=== PATIENT | male | born 1945 | race Caucasian/White ===

== ENCOUNTER 2020-10-16 15:19 | Inpatient (IN) ==
[2020-10-16] MEDS ORDERED: Isovue-370 500 ML BOTTLE IVP ONE (16:10)
[2020-10-16] MEDS ORDERED: Acetaminophen 325 MG TABLET PO ONE (16:11)
[2020-10-16] MEDS: Ringers Solution, Lactated 1,000 ML IVC SCH (16:15)
[2020-10-16 16:23] LABS: Basophils % 0.2 %; Eosinophils # 0.4 K/mcL (0.0-0.6); Eosinophils % 3.2 %; Hematocrit 25.9 % (37.5-50.1); Hemoglobin 7.6 g/dL (12.9-16.9); Immature Granulocytes % 0.7 % (0-4); Lymphocytes # 0.8 K/mcL (0.6-4.6); Lymphocytes % 6.1 %; Mean Corpuscular HGB Conc 29.3 g/dL (31.6-35.5); Mean Corpuscular Hemoglobin 23.6 pg (28.0-33.3); Mean Platelet Volume 8.9 fL (9.4-12.4); Monocytes # 0.8 K/mcL (0.0-1.3); Monocytes % 6.7 %; Neutrophils # 10.5 K/mcL (1.6-8.9); Platelet Count 256 K/mcL (140-400); Red Blood Count 3.22 M/mcL (4.19-5.50); Red Cell Distribution Width 16.5 % (11.5-14.5); Segmented Neutrophils % 83.1 %; White Blood Count 12.6 K/mcL (4.3-11.1)
[2020-10-16 16:26] LABS: Mean Corpuscular Volume 80.4 fL (83.0-100.0)
[2020-10-16 16:40] LABS: BUN/Creatinine Ratio 18 (6-26); Blood Urea Nitrogen 14 mg/dL (8-23); Calcium 8.9 mg/dL (8.6-10.3); Carbon Dioxide 25 mEq/L (23-29); Chloride 95 mEq/L (98-107); Glucose 163 mg/dL (70-105); Osmolality,Calculated 276 (280-300); Potassium 3.8 mEq/L (3.5-5.1); Sodium 131 mEq/L (136-145); eGFR For African Americans > 60 (> 60); eGFR For Non-African Americans > 60 (> 60)
[2020-10-16 16:45] LABS: Bilirubin,Urine Negative (Negative); Blood,Urine Negative (Negative); Clarity,Urine Clear (Clear); Color,Urine Light-Yellow (Yellow); Glucose,Urine (UA) 150 mg/dL (Normal); Ketones,Urine Negative (Negative); Leukocyte Esterase,Urine Negative (Negative); Nitrite,Urine Negative (Negative); Protein,Urine 30 mg/dL (Neg-Trace); RBC,Urine 0-3 per hpf (0-3); Specific Gravity,Urine 1.018 (1.010-1.025); Squamous Epithelial Cell,Urine Few per hpf (None-Few); Urobilinogen,Urine Normal (Normal); WBC,Urine 0-3 per hpf (0-3)
[2020-10-16 17:45] LABS: Adenovirus Not Detected (Not Detect); Bordetella Pertussis Not Detected (Not Detect); Chlamydophila pneumoniae Not Detected (Not Detect); Coronavirus 229E Not Detected (Not Detect); Coronavirus HKU1 Not Detected (Not Detect); Coronavirus NL63 Not Detected (Not Detect); Coronavirus OC43 Not Detected (Not Detect); Human Metapneumovirus Not Detected (Not Detect); Human Rhinovirus/Enterovirus Not Detected (Not Detect); Influenza A Subtype 2009 H1 Not Detected (Not Detect); Influenza B Not Detected (Not Detect); Mycoplasma pneumoniae Not Detected (Not Detect); Parainfluenza Virus 1 Not Detected (Not Detect); Parainfluenza Virus 2 Not Detected (Not Detect); Parainfluenza Virus 3 Not Detected (Not Detect); Parainfluenza Virus 4 Not Detected (Not Detect); Respiratory Syncytial Virus Not Detected (Not Detect); SARS-CoV-2 Not Detected (Not Detect)
[2020-10-16] MEDS ORDERED: Vancomycin 1,500 MG/265 ML IV.SOLN IVPB ONE (19:05)
[2020-10-16] MEDS ORDERED: Cefepime HCl 2,000 MG in Water for inj. (sterile) 20 ML IVP ONE (19:05)
[2020-10-16] MEDS ORDERED: Doxycycline 100 MG in 0.9 % Sodium Chloride Mini Bag 100 ML IVPB ONE (19:09)
[2020-10-16] MEDS ORDERED: Naloxone 0.4 MG/ML INJ IVP PRN (20:50)
[2020-10-16] MEDS ORDERED: Ondansetron 4 MG/2 ML VIAL IVP PRN (20:50)
[2020-10-16] MEDS ORDERED: Dextrose Gel 15 GM/37.5 ML TUBE PO PRN ×2 (21:02)
[2020-10-16] MEDS ORDERED: D5% in Water 1,000 ML IVC PRN (21:02)
[2020-10-16] MEDS ORDERED: *HR* Dextrose 50 % in Water (Vial) 50 ML VIAL IVP PRN (21:02)
[2020-10-16] MEDS ORDERED: 0.9 % Sodium Chloride 1,000 ML IVC ONE (21:23)
[2020-10-16] MEDS: Insulin LISPRO 300 UNITS/3 ML VIAL SUBQ SCH (22:38)
[2020-10-16] MEDS: *HR* Rivaroxaban 10 MG TABLET PO SCH (23:34)
[2020-10-16] MEDS: Azithromycin 500 MG in 0.9 % Sodium Chloride 250 ML IVPB SCH (23:34)
[2020-10-17] MEDS: Ipratropium/Albuterol Neb 3 ML IH PRN ×3 (00:58→20:30)
[2020-10-17] MEDS: Loratadine 10 MG TABLET PO SCH ×2 (00:59→21:27)
[2020-10-17 01:35] LABS: Basophils % 0.2 %; Eosinophils # 0.6 K/mcL (0.0-0.6); Eosinophils % 3.8 %; Hematocrit 26.1 % (37.5-50.1); Hemoglobin 7.7 g/dL (12.9-16.9); Immature Granulocytes % 0.9 % (0-4); Lymphocytes # 1.2 K/mcL (0.6-4.6); Lymphocytes % 7.1 %; Mean Corpuscular HGB Conc 29.5 g/dL (31.6-35.5); Mean Corpuscular Hemoglobin 23.5 pg (28.0-33.3); Mean Corpuscular Volume 79.6 fL (83.0-100.0); Mean Platelet Volume 9.7 fL (9.4-12.4); Monocytes # 1.2 K/mcL (0.0-1.3); Monocytes % 7.2 %; Neutrophils # 13.3 K/mcL (1.6-8.9); Platelet Count 306 K/mcL (140-400); Red Blood Count 3.28 M/mcL (4.19-5.50); Red Cell Distribution Width 16.7 % (11.5-14.5); Segmented Neutrophils % 80.8 %; White Blood Count 16.5 K/mcL (4.3-11.1)
[2020-10-17 01:49] LABS: BUN/Creatinine Ratio 17 (6-26); Blood Urea Nitrogen 13 mg/dL (8-23); Calcium 8.8 mg/dL (8.6-10.3); Carbon Dioxide 23 mEq/L (23-29); Chloride 95 mEq/L (98-107); Glucose 200 mg/dL (70-105); Osmolality,Calculated 276 (280-300); Potassium 3.9 mEq/L (3.5-5.1); Sodium 130 mEq/L (136-145); eGFR For African Americans > 60 (> 60); eGFR For Non-African Americans > 60 (> 60)
[2020-10-17] MEDS: Ringers Solution, Lactated 1,000 ML IVC SCH ×3 (02:51→21:30)
[2020-10-17] MEDS: Cefepime HCl 2,000 MG in Water for inj. (sterile) 20 ML IVP SCH ×3 (05:27→21:26)
[2020-10-17] MEDS: Finasteride 5 MG TABLET PO SCH (07:48)
[2020-10-17] MEDS: Aspirin Enteric Coated 81 MG Tablet PO SCH (07:49)
[2020-10-17] MEDS: Vancomycin 1,250 MG/262.5 ML IV.SOLN IVPB SCH ×2 (07:49→21:29)
[2020-10-17] MEDS: Insulin LISPRO 300 UNITS/3 ML VIAL SUBQ SCH ×4 (08:31→21:29)
[2020-10-17] MEDS ORDERED: GuaiFENesin/Dextromethorphan TABLET PO PRN (10:27)
[2020-10-17] MEDS: GuaiFENesin Liq 200 MG/10 ML UDC PO PRN ×2 (11:44→18:37)
[2020-10-17] MEDS: Acetaminophen 325 MG TABLET PO PRN (15:09)
[2020-10-17] MEDS: *HR* Rivaroxaban 10 MG TABLET PO SCH (18:36)
[2020-10-17] MEDS ORDERED: methylPREDNISolone 125 MG/2 ML VIAL IVP ONE (22:14)
[2020-10-17 23:15] LABS: ABG Base Excess -2 mEq/L (-2 to 3); ABG HCO3 22 mEq/L (21-27); ABG Oxygen Saturation 94 % (95-98); ABG PCO2 33 mmHg (35-45); ABG PH 7.44 pH Units (7.32-7.45); ABG PO2 68 mmHg (85-104); ABG TCO2 23 mEq/L (20-26)
[2020-10-17] MEDS ORDERED: Perflutren Lipid Microsphere 1.3 ML in 0.9 % Sodium Chloride 8.7 ML IVP PRN (23:32)
[2020-10-17] MEDS: Azithromycin 500 MG in 0.9 % Sodium Chloride 250 ML IVPB SCH (23:54)
[2020-10-18] MEDS: Furosemide 40 MG/4 ML VIAL IVP SCH ×2 (00:35→08:26)
[2020-10-18] MEDS: Acetaminophen 325 MG TABLET PO PRN ×2 (00:35→21:50)
[2020-10-18] MEDS: GuaiFENesin Liq 200 MG/10 ML UDC PO PRN ×2 (00:46→15:55)
[2020-10-18] MEDS: Cefepime HCl 2,000 MG in Water for inj. (sterile) 20 ML IVP SCH ×3 (04:28→21:51)
[2020-10-18 08:26] LABS: Hematocrit 24.2 % (37.5-50.1); Hemoglobin 7.1 g/dL (12.9-16.9); Mean Corpuscular HGB Conc 29.3 g/dL (31.6-35.5); Mean Corpuscular Hemoglobin 23.4 pg (28.0-33.3); Mean Corpuscular Volume 79.6 fL (83.0-100.0); Platelet Count 203 K/mcL (140-400); Red Blood Count 3.04 M/mcL (4.19-5.50); Red Cell Distribution Width 16.8 % (11.5-14.5)
[2020-10-18] MEDS: predniSONE 20 MG TABLET PO SCH (08:26)
[2020-10-18] MEDS: Finasteride 5 MG TABLET PO SCH (08:26)
[2020-10-18 08:40] LABS: White Blood Count 7.4 K/mcL (4.3-11.1)
[2020-10-18] MEDS: Vancomycin 1,250 MG/262.5 ML IV.SOLN IVPB SCH (08:40)
[2020-10-18] MEDS: Insulin LISPRO 300 UNITS/3 ML VIAL SUBQ SCH ×3 (08:41→21:55)
[2020-10-18] MEDS: Aspirin Enteric Coated 81 MG Tablet PO SCH (08:42)
[2020-10-18 08:47] LABS: Alanine Aminotransferase 9 Units/L (7-52); Albumin 3.2 g/dL (3.5-5.7); Albumin/Globulin Ratio 0.9 (1.1-2.2); Alkaline Phosphatase 47 Units/L (34-104); Aspartate Amino Transferase 16 Units/L (13-39); BUN/Creatinine Ratio 25 (6-26); Bilirubin,Total 0.4 mg/dL (0.3-1.0); Blood Urea Nitrogen 19 mg/dL (8-23); Calcium 8.7 mg/dL (8.6-10.3); Carbon Dioxide 24 mEq/L (23-29); Chloride 95 mEq/L (98-107); Globulin 3.6 g/dL (2.4-3.5); Glucose 303 mg/dL (70-105); Osmolality,Calculated 280 (280-300); Potassium 4.4 mEq/L (3.5-5.1); Sodium 128 mEq/L (136-145); Total Protein 6.8 g/dL (6.4-8.9); eGFR For African Americans > 60 (> 60); eGFR For Non-African Americans > 60 (> 60)
[2020-10-18] MEDS: Ipratropium/Albuterol Neb 3 ML IH PRN (10:30)
[2020-10-18] MEDS ORDERED: Perflutren Lipid Microsphere 1.3 ML in 0.9 % Sodium Chloride 8.7 ML IVP PRN (15:35)
[2020-10-18] MEDS ORDERED: Insulin LISPRO 300 UNITS/3 ML VIAL SUBQ SCH ×2 (16:30→21:00)
[2020-10-18] MEDS: *HR* Rivaroxaban 10 MG TABLET PO SCH (18:31)
[2020-10-18] MEDS: Melatonin 3 MG TABLET PO PRN (21:50)
[2020-10-18] MEDS: Loratadine 10 MG TABLET PO SCH (21:51)
[2020-10-18] MEDS: Vancomycin 1,500 MG/265 ML IV.SOLN IVPB SCH (21:57)
[2020-10-18] MEDS: Azithromycin 500 MG in 0.9 % Sodium Chloride 250 ML IVPB SCH (23:35)
[2020-10-19 01:13] LABS: Hematocrit 21.1 % (37.5-50.1); Hemoglobin 6.4 g/dL (12.9-16.9); Mean Corpuscular HGB Conc 30.3 g/dL (31.6-35.5); Mean Corpuscular Hemoglobin 23.6 pg (28.0-33.3); Mean Corpuscular Volume 77.9 fL (83.0-100.0); Mean Platelet Volume 9.2 fL (9.4-12.4); Platelet Count 235 K/mcL (140-400); Red Blood Count 2.71 M/mcL (4.19-5.50); Red Cell Distribution Width 16.4 % (11.5-14.5)
[2020-10-19 01:15] LABS: White Blood Count 12.2 K/mcL (4.3-11.1)
[2020-10-19 01:29] LABS: Iron < 10 mcg/dL (65-175); Transferrin 183 mg/dL (203-362)
[2020-10-19 01:30] LABS: Alanine Aminotransferase 13 Units/L (7-52); Albumin/Globulin Ratio 0.9 (1.1-2.2); Alkaline Phosphatase 43 Units/L (34-104); Aspartate Amino Transferase 23 Units/L (13-39); BUN/Creatinine Ratio 35 (6-26); Bilirubin,Total 0.3 mg/dL (0.3-1.0); Blood Urea Nitrogen 29 mg/dL (8-23); Calcium 8.6 mg/dL (8.6-10.3); Carbon Dioxide 23 mEq/L (23-29); Chloride 98 mEq/L (98-107); Glucose 147 mg/dL (70-105); Osmolality,Calculated 279 (280-300); Potassium 3.9 mEq/L (3.5-5.1); Sodium 130 mEq/L (136-145); Total Protein 6.2 g/dL (6.4-8.9); eGFR For African Americans > 60 (> 60); eGFR For Non-African Americans > 60 (> 60)
[2020-10-19 01:31] LABS: Globulin 3.2 g/dL (2.4-3.5)
[2020-10-19] MEDS: Acetaminophen 325 MG TABLET PO PRN ×3 (03:50→23:00)
[2020-10-19] MEDS: Cefepime HCl 2,000 MG in Water for inj. (sterile) 20 ML IVP SCH ×3 (03:51→19:47)
[2020-10-19] MEDS: GuaiFENesin Liq 200 MG/10 ML UDC PO PRN ×3 (04:17→23:00)
[2020-10-19] MEDS: Finasteride 5 MG TABLET PO SCH (08:16)
[2020-10-19] MEDS: Furosemide 40 MG/4 ML VIAL IVP SCH (08:16)
[2020-10-19] MEDS: Aspirin Enteric Coated 81 MG Tablet PO SCH (08:17)
[2020-10-19] MEDS: predniSONE 20 MG TABLET PO SCH (08:17)
[2020-10-19] MEDS: Insulin LISPRO 300 UNITS/3 ML VIAL SUBQ SCH ×4 (08:18→21:59)
[2020-10-19] MEDS: Vancomycin 1,500 MG/265 ML IV.SOLN IVPB SCH ×2 (08:19→22:37)
[2020-10-19] MEDS: Ipratropium/Albuterol Neb 3 ML IH PRN (10:03)
[2020-10-19 10:11] LABS: Hemoglobin 7.5 g/dL (12.9-16.9)
[2020-10-19] MEDS ORDERED: Isovue-370 500 ML BOTTLE IVP ONE (10:23)
[2020-10-19] MEDS: *HR* Rivaroxaban 10 MG TABLET PO SCH (17:19)
[2020-10-19] MEDS ORDERED: Saliva Stimulant 44.3ml BOTTLE PO PRN (18:24)
[2020-10-19] MEDS ORDERED: Saline Nasal Spray 44 ML BOTTLE NS PRN (18:24)
[2020-10-19] MEDS ORDERED: Artificial Tears SOLN 15 ML BOTTLE BOTH EYES PRN (18:24)
[2020-10-19] MEDS ORDERED: Iron Sucrose Complex 400 MG in 0.9 % Sodium Chloride 250 ML IVPB ONE (18:26)
[2020-10-19] MEDS ORDERED: Insulin Human Regular 10 UNIT in 0.9 % Sodium Chloride 10 ML IV ONE (18:27)
[2020-10-19] MEDS ORDERED: *HR* Metoprolol 5 MG/5 ML VIAL IVP ONE (18:40)
[2020-10-19] MEDS: Ipratropium/Albuterol Neb 3 ML IH SCH ×2 (19:50→23:39)
[2020-10-19] MEDS: Loratadine 10 MG TABLET PO SCH (19:57)
[2020-10-19] MEDS: Lactobacillus 1 EACH CAP.SPRINK PO SCH (19:57)
[2020-10-19] MEDS: Chlorhexidine Rinse 15 ML MOUTHWASH MM SCH (19:57)
[2020-10-19] MEDS: Insulin DETEMIR 100 UNIT/ML X5UNITS SUBQ SCH (20:00)
[2020-10-19] MEDS: Budesonide/Formoterol 160/4.5 1 PUFF INH IH SCH (21:58)
[2020-10-20] MEDS ORDERED: *HR* LORazepam 2 MG/ML VIAL IVP ONE ×2 (03:32→07:19)
[2020-10-20] MEDS: Ipratropium/Albuterol Neb 3 ML IH SCH ×5 (03:45→19:15)
[2020-10-20] MEDS: Cefepime HCl 2,000 MG in Water for inj. (sterile) 20 ML IVP SCH ×3 (03:48→22:14)
[2020-10-20] MEDS ORDERED: *HR* Metoprolol 5 MG/5 ML VIAL IVP ONE (07:19)
[2020-10-20] MEDS ORDERED: *HR* LORazepam 0.5 MG TABLET PO PRN (07:20)
[2020-10-20] MEDS: Insulin LISPRO 300 UNITS/3 ML VIAL SUBQ SCH ×5 (07:54→22:19)
[2020-10-20] MEDS: Multivit/Ca/Min/Fe/FA 1 TAB TABLET PO SCH (07:58)
[2020-10-20] MEDS: Finasteride 5 MG TABLET PO SCH (07:58)
[2020-10-20] MEDS: Chlorhexidine Rinse 15 ML MOUTHWASH MM SCH ×2 (07:58→22:15)
[2020-10-20] MEDS: Azithromycin 250 MG TABLET PO SCH (07:58)
[2020-10-20] MEDS: predniSONE 20 MG TABLET PO SCH (07:58)
[2020-10-20] MEDS: Lactobacillus 1 EACH CAP.SPRINK PO SCH ×2 (07:59→22:15)
[2020-10-20] MEDS: Furosemide 40 MG/4 ML VIAL IVP SCH (07:59)
[2020-10-20] MEDS: Aspirin Enteric Coated 81 MG Tablet PO SCH (07:59)
[2020-10-20] MEDS: Budesonide/Formoterol 160/4.5 1 PUFF INH IH SCH ×2 (08:00→19:16)
[2020-10-20] MEDS ORDERED: QUEtiapine Fumarate 25 MG TABLET PO ONE (08:39)
[2020-10-20] MEDS: Vancomycin 1,500 MG/265 ML IV.SOLN IVPB SCH ×2 (08:44→22:36)
[2020-10-20] MEDS: Dexmedetomidine HCl 400 MCG/100 ML MLS IVC SCH (10:17)
[2020-10-20 13:05] LABS: Hemoglobin 6.7 g/dL (12.9-16.9); Mean Corpuscular HGB Conc 29.1 g/dL (31.6-35.5); Mean Corpuscular Hemoglobin 22.9 pg (28.0-33.3); Mean Corpuscular Volume 78.5 fL (83.0-100.0); Mean Platelet Volume 9.4 fL (9.4-12.4); Platelet Count 244 K/mcL (140-400); Red Blood Count 2.93 M/mcL (4.19-5.50); Red Cell Distribution Width 16.6 % (11.5-14.5); White Blood Count 10.8 K/mcL (4.3-11.1)
[2020-10-20 13:16] LABS: Alanine Aminotransferase 16 Units/L (7-52); Albumin 3.1 g/dL (3.5-5.7); Albumin/Globulin Ratio 0.9 (1.1-2.2); Alkaline Phosphatase 54 Units/L (34-104); Aspartate Amino Transferase 17 Units/L (13-39); BUN/Creatinine Ratio 20 (6-26); Bilirubin,Total 0.4 mg/dL (0.3-1.0); Blood Urea Nitrogen 17 mg/dL (8-23); Calcium 8.5 mg/dL (8.6-10.3); Carbon Dioxide 25 mEq/L (23-29); Chloride 99 mEq/L (98-107); Chol/HDL Ratio 4.5 (0-4.9); Cholesterol 99 mg/dL (< 200); Globulin 3.4 g/dL (2.4-3.5); Glucose 221 mg/dL (70-105); HDL Cholesterol 22 mg/dL (40-59); LDL Cholesterol,Calculated 50 mg/dL (< 100); Osmolality,Calculated 286 (280-300); Potassium 4.1 mEq/L (3.5-5.1); Sodium 134 mEq/L (136-145); Total Protein 6.5 g/dL (6.4-8.9); Triglycerides 137 mg/dL (< 150); eGFR For African Americans > 60 (> 60); eGFR For Non-African Americans > 60 (> 60)
[2020-10-20 13:17] LABS: Troponin I < 0.03 ng/mL (< 0.04)
[2020-10-20 13:42] LABS: Estimated Average Glucose 169 mg/dl; Hemoglobin A1C 7.5 %
[2020-10-20] MEDS ORDERED: 0.9 % Sodium Chloride 500 ML ONE (18:23)
[2020-10-20] MEDS: QUEtiapine Fumarate 25 MG TABLET PO SCH (22:16)
[2020-10-20] MEDS: Insulin DETEMIR 100 UNIT/ML X5UNITS SUBQ SCH (22:18)
[2020-10-21] MEDS: Ipratropium/Albuterol Neb 3 ML IH SCH ×7 (00:26→23:52)
[2020-10-21 03:27] LABS: Hematocrit 24.7 % (37.5-50.1); Hemoglobin 7.2 g/dL (12.9-16.9); Mean Corpuscular HGB Conc 29.1 g/dL (31.6-35.5); Mean Corpuscular Hemoglobin 23.3 pg (28.0-33.3); Mean Corpuscular Volume 79.9 fL (83.0-100.0); Mean Platelet Volume 9.4 fL (9.4-12.4); Platelet Count 215 K/mcL (140-400); Red Blood Count 3.09 M/mcL (4.19-5.50); Red Cell Distribution Width 16.7 % (11.5-14.5); White Blood Count 9.2 K/mcL (4.3-11.1)
[2020-10-21 03:35] LABS: INR 1.4; Prothrombin Time 16.3 Seconds (9.4-12.1)
[2020-10-21] MEDS: Cefepime HCl 2,000 MG in Water for inj. (sterile) 20 ML IVP SCH ×3 (03:40→19:48)
[2020-10-21 03:48] LABS: Alanine Aminotransferase 13 Units/L (7-52); Alkaline Phosphatase 48 Units/L (34-104); Aspartate Amino Transferase 13 Units/L (13-39); BUN/Creatinine Ratio 24 (6-26); Bilirubin,Total 0.4 mg/dL (0.3-1.0); Blood Urea Nitrogen 19 mg/dL (8-23); Calcium 8.5 mg/dL (8.6-10.3); Carbon Dioxide 28 mEq/L (23-29); Chloride 101 mEq/L (98-107); Globulin 3.1 g/dL (2.4-3.5); Glucose 193 mg/dL (70-105); Magnesium 2.2 mg/dL (1.6-2.6); Osmolality,Calculated 290 (280-300); Phosphorous 2.5 mg/dL (2.7-4.5); Potassium 3.8 mEq/L (3.5-5.1); Sodium 136 mEq/L (136-145); Total Protein 6.1 g/dL (6.4-8.9); eGFR For African Americans > 60 (> 60); eGFR For Non-African Americans > 60 (> 60)
[2020-10-21] MEDS: Budesonide/Formoterol 160/4.5 1 PUFF INH IH SCH ×2 (07:27→19:35)
[2020-10-21] MEDS: Insulin LISPRO 300 UNITS/3 ML VIAL SUBQ SCH ×9 (07:32→20:47)
[2020-10-21] MEDS: Finasteride 5 MG TABLET PO SCH (08:04)
[2020-10-21] MEDS: predniSONE 20 MG TABLET PO SCH (08:04)
[2020-10-21] MEDS: Aspirin Enteric Coated 81 MG Tablet PO SCH (08:04)
[2020-10-21] MEDS: Azithromycin 250 MG TABLET PO SCH (08:04)
[2020-10-21] MEDS: Multivit/Ca/Min/Fe/FA 1 TAB TABLET PO SCH (08:04)
[2020-10-21] MEDS: Lactobacillus 1 EACH CAP.SPRINK PO SCH ×2 (08:04→20:46)
[2020-10-21] MEDS: Calcium Gluconate 1gm/50mL 1 GM/50 ML BAG IVPB SCH ×2 (08:05→08:38)
[2020-10-21] MEDS: Chlorhexidine Rinse 15 ML MOUTHWASH MM SCH ×2 (08:06→20:33)
[2020-10-21] MEDS: Dexmedetomidine HCl 400 MCG/100 ML MLS IVC SCH (08:25)
[2020-10-21] MEDS: Vancomycin 1,500 MG/265 ML IV.SOLN IVPB SCH ×2 (08:34→20:45)
[2020-10-21] MEDS: Pantoprazole 40 MG VIAL IVP SCH ×2 (12:05→15:56)
[2020-10-21] MEDS: Acetaminophen 325 MG TABLET PO PRN (16:03)
[2020-10-21] MEDS: QUEtiapine Fumarate 25 MG TABLET PO SCH (20:46)
[2020-10-21] MEDS: Insulin DETEMIR 100 UNIT/ML X5UNITS SUBQ SCH (20:46)
[2020-10-21 22:21] LABS: Hematocrit 24.8 % (37.5-50.1); Hemoglobin 7.2 g/dL (12.9-16.9)
[2020-10-22] MEDS: Dexmedetomidine HCl 400 MCG/100 ML MLS IVC SCH (00:27)
[2020-10-22] MEDS: Ipratropium/Albuterol Neb 3 ML IH SCH ×6 (04:12→23:49)
[2020-10-22 04:22] LABS: ABG Base Excess 2 mEq/L (-2 to 3); ABG HCO3 26 mEq/L (21-27); ABG Oxygen Saturation 86 % (95-98); ABG PCO2 39 mmHg (35-45); ABG PH 7.44 pH Units (7.32-7.45); ABG PO2 49 mmHg (85-104); ABG TCO2 27 mEq/L (20-26)
[2020-10-22] MEDS: Cefepime HCl 2,000 MG in Water for inj. (sterile) 20 ML IVP SCH ×3 (04:42→20:47)
[2020-10-22] MEDS: Pantoprazole 40 MG VIAL IVP SCH ×2 (04:42→17:36)
[2020-10-22 06:25] LABS: Hematocrit 27.2 % (37.5-50.1); Mean Corpuscular HGB Conc 29.4 g/dL (31.6-35.5); Mean Corpuscular Hemoglobin 23.7 pg (28.0-33.3); Mean Corpuscular Volume 80.7 fL (83.0-100.0); Mean Platelet Volume 9.7 fL (9.4-12.4); Platelet Count 242 K/mcL (140-400); Red Blood Count 3.37 M/mcL (4.19-5.50); White Blood Count 10.1 K/mcL (4.3-11.1)
[2020-10-22 06:29] LABS: INR 1.4; Prothrombin Time 15.5 Seconds (9.4-12.1)
[2020-10-22 06:44] LABS: Alanine Aminotransferase 14 Units/L (7-52); Albumin 2.9 g/dL (3.5-5.7); Albumin/Globulin Ratio 0.9 (1.1-2.2); Alkaline Phosphatase 44 Units/L (34-104); Aspartate Amino Transferase 18 Units/L (13-39); BUN/Creatinine Ratio 21 (6-26); Bilirubin,Total 0.4 mg/dL (0.3-1.0); Blood Urea Nitrogen 19 mg/dL (8-23); Carbon Dioxide 28 mEq/L (23-29); Chloride 102 mEq/L (98-107); Globulin 3.2 g/dL (2.4-3.5); Glucose 168 mg/dL (70-105); Magnesium 2.1 mg/dL (1.6-2.6); Osmolality,Calculated 286 (280-300); Phosphorous 3.3 mg/dL (2.7-4.5); Sodium 135 mEq/L (136-145); Total Protein 6.1 g/dL (6.4-8.9); eGFR For African Americans > 60 (> 60); eGFR For Non-African Americans > 60 (> 60)
[2020-10-22] MEDS: Budesonide/Formoterol 160/4.5 1 PUFF INH IH SCH ×2 (08:02→19:59)
[2020-10-22] MEDS: Insulin LISPRO 300 UNITS/3 ML VIAL SUBQ SCH ×7 (08:52→20:47)
[2020-10-22] MEDS: Aspirin Enteric Coated 81 MG Tablet PO SCH (08:55)
[2020-10-22] MEDS: predniSONE 20 MG TABLET PO SCH (08:56)
[2020-10-22] MEDS: Multivit/Ca/Min/Fe/FA 1 TAB TABLET PO SCH (08:56)
[2020-10-22] MEDS: Lactobacillus 1 EACH CAP.SPRINK PO SCH ×2 (08:56→20:48)
[2020-10-22] MEDS: Finasteride 5 MG TABLET PO SCH (08:56)
[2020-10-22] MEDS: Acetaminophen 325 MG TABLET PO PRN ×2 (08:56→20:53)
[2020-10-22] MEDS: Azithromycin 250 MG TABLET PO SCH (08:57)
[2020-10-22] MEDS: Chlorhexidine Rinse 15 ML MOUTHWASH MM SCH ×2 (08:57→20:48)
[2020-10-22] MEDS: Vancomycin 1,500 MG/265 ML IV.SOLN IVPB SCH ×2 (09:25→20:46)
[2020-10-22 09:59] LABS: C-Reactive Protein 63 mg/L (Less than 10)
[2020-10-22] MEDS ORDERED: methylPREDNISolone 125 MG/2 ML VIAL IVP SCH (12:00)
[2020-10-22] MEDS: Insulin DETEMIR 100 UNIT/ML X5UNITS SUBQ SCH (20:48)
[2020-10-22] MEDS: QUEtiapine Fumarate 25 MG TABLET PO SCH (20:48)
[2020-10-22] MEDS: Melatonin 3 MG TABLET PO PRN (20:54)
[2020-10-23 01:26] LABS: Basophils % 0.1 %; Hematocrit 26.4 % (37.5-50.1); Hemoglobin 7.9 g/dL (12.9-16.9); Lymphocytes # 0.6 K/mcL (0.6-4.6); Lymphocytes % 8.3 %; Mean Corpuscular HGB Conc 29.9 g/dL (31.6-35.5); Mean Corpuscular Hemoglobin 23.9 pg (28.0-33.3); Mean Platelet Volume 9.5 fL (9.4-12.4); Monocytes # 0.2 K/mcL (0.0-1.3); Monocytes % 2.7 %; Neutrophils # 6.1 K/mcL (1.6-8.9); Platelet Count 227 K/mcL (140-400); Red Cell Distribution Width 17.7 % (11.5-14.5); Segmented Neutrophils % 86.9 %
[2020-10-23 01:36] LABS: INR 1.4; Prothrombin Time 16.1 Seconds (9.4-12.1)
[2020-10-23 01:45] LABS: Alanine Aminotransferase 18 Units/L (7-52); Albumin 3.2 g/dL (3.5-5.7); Alkaline Phosphatase 49 Units/L (34-104); Aspartate Amino Transferase 18 Units/L (13-39); BUN/Creatinine Ratio 21 (6-26); Bilirubin,Total 0.4 mg/dL (0.3-1.0); Blood Urea Nitrogen 23 mg/dL (8-23); Calcium 8.7 mg/dL (8.6-10.3); Carbon Dioxide 23 mEq/L (23-29); Chloride 101 mEq/L (98-107); Globulin 3.2 g/dL (2.4-3.5); Glucose 363 mg/dL (70-105); Magnesium 2.1 mg/dL (1.6-2.6); Osmolality,Calculated 296 (280-300); Phosphorous 2.7 mg/dL (2.7-4.5); Potassium 4.3 mEq/L (3.5-5.1); Sodium 134 mEq/L (136-145); Total Protein 6.4 g/dL (6.4-8.9); eGFR For African Americans > 60 (> 60); eGFR For Non-African Americans > 60 (> 60)
[2020-10-23] MEDS: Ipratropium/Albuterol Neb 3 ML IH SCH ×5 (03:30→20:02)
[2020-10-23] MEDS: Cefepime HCl 2,000 MG in Water for inj. (sterile) 20 ML IVP SCH ×2 (05:02→20:41)
[2020-10-23] MEDS: Pantoprazole 40 MG VIAL IVP SCH ×2 (05:04→16:03)
[2020-10-23 05:08] LABS: ABG Base Excess -1 mEq/L (-2 to 3); ABG HCO3 23 mEq/L (21-27); ABG Oxygen Saturation 83 % (95-98); ABG PCO2 35 mmHg (35-45); ABG PH 7.43 pH Units (7.32-7.45); ABG PO2 46 mmHg (85-104); ABG TCO2 25 mEq/L (20-26)
[2020-10-23] MEDS: Budesonide/Formoterol 160/4.5 1 PUFF INH IH SCH ×2 (07:33→20:02)
[2020-10-23] MEDS: Insulin LISPRO 300 UNITS/3 ML VIAL SUBQ SCH ×5 (07:49→21:05)
[2020-10-23] MEDS: Aspirin Enteric Coated 81 MG Tablet PO SCH (07:51)
[2020-10-23] MEDS: Insulin DETEMIR 100 UNIT/ML X5UNITS SUBQ SCH ×2 (07:51→21:04)
[2020-10-23] MEDS: Lactobacillus 1 EACH CAP.SPRINK PO SCH ×2 (07:51→20:40)
[2020-10-23] MEDS: Finasteride 5 MG TABLET PO SCH (07:51)
[2020-10-23] MEDS: Multivit/Ca/Min/Fe/FA 1 TAB TABLET PO SCH (07:51)
[2020-10-23] MEDS: Vancomycin 1,500 MG/265 ML IV.SOLN IVPB SCH (07:52)
[2020-10-23] MEDS: Chlorhexidine Rinse 15 ML MOUTHWASH MM SCH (07:52)
[2020-10-23] MEDS: Dexmedetomidine HCl 400 MCG/100 ML MLS IVC SCH (07:53)
[2020-10-23] MEDS ORDERED: *HR* Propofol 200 MG/20 ML VIAL IVP ONE ×2 (09:38→11:27)
[2020-10-23] MEDS ORDERED: Famotidine 20 MG/2 ML VIAL IVP ONE (09:44)
[2020-10-23] MEDS ORDERED: *HR* Labetalol 20 MG/4 ML SYRINGE IVP PRN (09:44)
[2020-10-23] MEDS ORDERED: *HR* HYDROmorphone 2 MG TABLET PO PRN (09:44)
[2020-10-23] MEDS ORDERED: *HR* OxyCODONE Immed Rel 5 MG TABLET PO PRN (09:44)
[2020-10-23] MEDS ORDERED: Acetaminophen IV 1,000 MG/100 ML BAG IVPB ONE ×2 (09:44→12:12)
[2020-10-23] MEDS ORDERED: *HR* Rocuronium Bromide 50 MG/5 ML VIAL ONE (10:10)
[2020-10-23] MEDS ORDERED: Ondansetron 4 MG/2 ML VIAL ONE ×2 (10:10→11:27)
[2020-10-23] MEDS ORDERED: Lidocaine -MPF 2% 2 ML VIAL ONE ×3 (10:10→11:30)
[2020-10-23] MEDS ORDERED: *HR* Succinylcholine 200 MG/10 ML VIAL IVP ONE ×2 (10:10→11:30)
[2020-10-23] MEDS ORDERED: *HR* FentaNYL (PF) 100 MCG/2 ML VIAL ONE ×2 (11:27→12:27)
[2020-10-23] MEDS ORDERED: *HR* Midazolam HCl 2 MG/2 ML VIAL ONE (11:27)
[2020-10-23] MEDS ORDERED: Lidocaine -MPF 4% 5 ML AMPUL ONE (11:35)
[2020-10-23] MEDS ORDERED: *HR* Vasopressin 20 UNIT/ML VIAL ONE (12:12)
[2020-10-23] MEDS ORDERED: EPHEDrine 50 MG/ML VIAL ONE (12:13)
[2020-10-23] MEDS ORDERED: Sugammadex Sodium 200 MG/2 ML VIAL IV ONE (12:49)
[2020-10-23] MEDS: *HR* HYDROmorphone (PF) 1 MG/ML SYRINGE IVP PRN ×2 (13:22→13:35)
[2020-10-23] MEDS ORDERED: *HR* LORazepam 0.5 MG TABLET PO PRN (14:18)
[2020-10-23] MEDS ORDERED: *HR* Dextrose 50 % in Water (Vial) 50 ML VIAL IVP PRN (14:18)
[2020-10-23] MEDS ORDERED: Dextrose Gel 15 GM/37.5 ML TUBE PO PRN (14:18)
[2020-10-23] MEDS ORDERED: Saline Nasal Spray 44 ML BOTTLE NS PRN (14:18)
[2020-10-23] MEDS ORDERED: D5% in Water 1,000 ML IVC PRN (14:18)
[2020-10-23] MEDS ORDERED: 0.9 % Sodium Chloride 1,000 ML ONE (14:27)
[2020-10-23] MEDS: 0.9 % Sodium Chloride 1,000 ML IVC SCH (14:51)
[2020-10-23] MEDS: Gabapentin 300 MG CAPSULE PO SCH ×2 (16:03→20:40)
[2020-10-23] MEDS: Ketorolac 15 MG/ML VIAL IVP SCH (16:04)
[2020-10-23] MEDS: Melatonin 3 MG TABLET PO PRN (20:38)
[2020-10-23] MEDS: Acetaminophen 325 MG TABLET PO PRN (20:39)
[2020-10-23] MEDS: QUEtiapine Fumarate 25 MG TABLET PO SCH (20:40)
[2020-10-24] MEDS: Ipratropium/Albuterol Neb 3 ML IH SCH ×6 (00:18→19:52)
[2020-10-24] MEDS: Ketorolac 15 MG/ML VIAL IVP SCH ×4 (01:37→16:29)
[2020-10-24 02:52] LABS: Hematocrit 26.5 % (37.5-50.1); Hemoglobin 7.8 g/dL (12.9-16.9); Mean Corpuscular HGB Conc 29.4 g/dL (31.6-35.5); Mean Corpuscular Hemoglobin 24.1 pg (28.0-33.3); Mean Corpuscular Volume 81.8 fL (83.0-100.0); Mean Platelet Volume 9.9 fL (9.4-12.4); Platelet Count 239 K/mcL (140-400); Red Blood Count 3.24 M/mcL (4.19-5.50); Red Cell Distribution Width 18.2 % (11.5-14.5)
[2020-10-24 02:54] LABS: White Blood Count 11.7 K/mcL (4.3-11.1)
[2020-10-24 03:21] LABS: Alanine Aminotransferase 13 Units/L (7-52); Alkaline Phosphatase 43 Units/L (34-104); Aspartate Amino Transferase 17 Units/L (13-39); BUN/Creatinine Ratio 31 (6-26); Bilirubin,Total 0.3 mg/dL (0.3-1.0); Blood Urea Nitrogen 30 mg/dL (8-23); Calcium 8.4 mg/dL (8.6-10.3); Carbon Dioxide 23 mEq/L (23-29); Chloride 105 mEq/L (98-107); Globulin 2.9 g/dL (2.4-3.5); Glucose 236 mg/dL (70-105); Magnesium 2.3 mg/dL (1.6-2.6); Osmolality,Calculated 294 (280-300); Potassium 4.4 mEq/L (3.5-5.1); Sodium 135 mEq/L (136-145); Total Protein 5.9 g/dL (6.4-8.9); eGFR For African Americans > 60 (> 60); eGFR For Non-African Americans > 60 (> 60)
[2020-10-24] MEDS: 0.9 % Sodium Chloride 1,000 ML IVC SCH (03:55)
[2020-10-24] MEDS: Cefepime HCl 2,000 MG in Water for inj. (sterile) 20 ML IVP SCH ×3 (03:56→20:31)
[2020-10-24] MEDS: Pantoprazole 40 MG VIAL IVP SCH (05:31)
[2020-10-24] MEDS ORDERED: *HR* Dextrose 50 % in Water (Vial) 50 ML VIAL IVP PRN (07:01)
[2020-10-24] MEDS ORDERED: Insulin Regular, Human 100 UNIT/ML IV PRN (07:01)
[2020-10-24] MEDS ORDERED: 0.45 % Sodium Chloride w/KCl 20 MEQ/1,000 ML MLS IVC SCH (07:15)
[2020-10-24] MEDS: Aspirin Enteric Coated 81 MG Tablet PO SCH (07:37)
[2020-10-24] MEDS: Budesonide/Formoterol 160/4.5 1 PUFF INH IH SCH (07:37)
[2020-10-24] MEDS: Finasteride 5 MG TABLET PO SCH (07:37)
[2020-10-24] MEDS: Multivit/Ca/Min/Fe/FA 1 TAB TABLET PO SCH (07:37)
[2020-10-24] MEDS: Lactobacillus 1 EACH CAP.SPRINK PO SCH ×2 (07:38→20:30)
[2020-10-24] MEDS: Gabapentin 300 MG CAPSULE PO SCH ×3 (07:38→20:30)
[2020-10-24] MEDS: Insulin DETEMIR 100 UNIT/ML X5UNITS SUBQ SCH ×2 (07:39→20:42)
[2020-10-24] MEDS: Insulin LISPRO 300 UNITS/3 ML VIAL SUBQ SCH ×7 (07:55→20:41)
[2020-10-24] MEDS ORDERED: Azithromycin 500 MG in 0.9 % Sodium Chloride 250 ML IVPB SCH (09:00)
[2020-10-24] MEDS: *HR* HYDROcodone/Acet 5/325 mg TABLET PO PRN ×2 (11:35→23:09)
[2020-10-24] MEDS: Acetaminophen 325 MG TABLET PO PRN (20:30)
[2020-10-24] MEDS: QUEtiapine Fumarate 25 MG TABLET PO SCH (20:30)
[2020-10-24] MEDS: Melatonin 3 MG TABLET PO PRN (20:31)
[2020-10-25] MEDS: Ipratropium/Albuterol Neb 3 ML IH SCH ×7 (00:06→23:42)
[2020-10-25] MEDS: Budesonide/Formoterol 160/4.5 1 PUFF INH IH SCH ×3 (00:06→20:06)
[2020-10-25] MEDS: Ketorolac 15 MG/ML VIAL IVP SCH ×4 (00:17→17:16)
[2020-10-25] MEDS ORDERED: Water for inj. (sterile) 20 ML IV ONE (03:30)
[2020-10-25] MEDS: Cefepime HCl 2,000 MG in Water for inj. (sterile) 20 ML IVP SCH ×3 (03:37→20:57)
[2020-10-25 05:57] LABS: Basophils % 0.1 %; Hematocrit 29.1 % (37.5-50.1); Hematocrit 29.4 % (37.5-50.1); Hemoglobin 8.6 g/dL (12.9-16.9); Hemoglobin 8.7 g/dL (12.9-16.9); Immature Granulocytes % 2.2 % (0-4); Lymphocytes # 0.6 K/mcL (0.6-4.6); Lymphocytes % 7.8 %; Mean Corpuscular HGB Conc 29.3 g/dL (31.6-35.5); Mean Corpuscular HGB Conc 29.9 g/dL (31.6-35.5); Mean Corpuscular Hemoglobin 23.8 pg (28.0-33.3); Mean Corpuscular Hemoglobin 24.4 pg (28.0-33.3); Mean Corpuscular Volume 81.4 fL (83.0-100.0); Mean Corpuscular Volume 81.5 fL (83.0-100.0); Mean Platelet Volume 9.6 fL (9.4-12.4); Mean Platelet Volume 9.8 fL (9.4-12.4); Monocytes # 0.4 K/mcL (0.0-1.3); Monocytes % 4.8 %; Neutrophils # 6.6 K/mcL (1.6-8.9); Platelet Count 207 K/mcL (140-400); Platelet Count 214 K/mcL (140-400); Red Blood Count 3.57 M/mcL (4.19-5.50); Red Blood Count 3.61 M/mcL (4.19-5.50); Red Cell Distribution Width 18.6 % (11.5-14.5); Segmented Neutrophils % 85.1 %; White Blood Count 7.7 K/mcL (4.3-11.1); White Blood Count 7.8 K/mcL (4.3-11.1)
[2020-10-25 06:19] LABS: BUN/Creatinine Ratio 31 (6-26); Blood Urea Nitrogen 28 mg/dL (8-23); Calcium 8.5 mg/dL (8.6-10.3); Carbon Dioxide 24 mEq/L (23-29); Chloride 103 mEq/L (98-107); Glucose 280 mg/dL (70-105); Magnesium 2.4 mg/dL (1.6-2.6); Osmolality,Calculated 294 (280-300); Potassium 4.8 mEq/L (3.5-5.1); Sodium 134 mEq/L (136-145); eGFR For African Americans > 60 (> 60); eGFR For Non-African Americans > 60 (> 60)
[2020-10-25] MEDS: amLODIPine 5 MG TABLET PO SCH ×2 (07:39→08:59)
[2020-10-25] MEDS: predniSONE 20 MG TABLET PO SCH (08:58)
[2020-10-25] MEDS: Aspirin Enteric Coated 81 MG Tablet PO SCH (08:59)
[2020-10-25] MEDS: Lactobacillus 1 EACH CAP.SPRINK PO SCH ×2 (08:59→20:57)
[2020-10-25] MEDS: Finasteride 5 MG TABLET PO SCH (09:00)
[2020-10-25] MEDS: Multivit/Ca/Min/Fe/FA 1 TAB TABLET PO SCH (09:01)
[2020-10-25] MEDS: Gabapentin 300 MG CAPSULE PO SCH ×3 (09:02→20:57)
[2020-10-25] MEDS: Insulin LISPRO 300 UNITS/3 ML VIAL SUBQ SCH ×7 (09:03→21:38)
[2020-10-25] MEDS ORDERED: *HR* Alteplase (Cathflo) 2 MG VIAL IVP ONE (10:17)
[2020-10-25] MEDS: Insulin DETEMIR 100 UNIT/ML X5UNITS SUBQ SCH ×2 (10:58→21:39)
[2020-10-25] MEDS: Vancomycin 1,500 MG/265 ML IV.SOLN IVPB SCH (12:28)
[2020-10-25] MEDS: Metoprolol XL (24 HR) Succ 25 MG TAB.ER.24H PO SCH (15:34)
[2020-10-25] MEDS ORDERED: Vancomycin (wt based) 1,000 MG VIAL IVPB SCH (18:00)
[2020-10-25] MEDS: QUEtiapine Fumarate 25 MG TABLET PO SCH (20:57)
[2020-10-26] MEDS: Melatonin 3 MG TABLET PO PRN (00:08)
[2020-10-26] MEDS: Vancomycin 1,500 MG/265 ML IV.SOLN IVPB SCH ×2 (00:09→12:17)
[2020-10-26] MEDS: Ketorolac 15 MG/ML VIAL IVP SCH ×4 (00:09→17:16)
[2020-10-26] MEDS: Ipratropium/Albuterol Neb 3 ML IH SCH ×6 (03:56→23:13)
[2020-10-26] MEDS: Cefepime HCl 2,000 MG in Water for inj. (sterile) 20 ML IVP SCH ×3 (04:52→20:30)
[2020-10-26 05:20] LABS: Basophils % 0.1 %; Eosinophils % 1.5 %; Red Cell Distribution Width 18.6 % (11.5-14.5)
[2020-10-26 05:21] LABS: Eosinophils # 0.2 K/mcL (0.0-0.6); Hematocrit 26.1 % (37.5-50.1); Hemoglobin 7.8 g/dL (12.9-16.9); Immature Granulocytes % 1.5 % (0-4); Lymphocytes # 1.4 K/mcL (0.6-4.6); Lymphocytes % 12.6 %; Mean Corpuscular HGB Conc 29.9 g/dL (31.6-35.5); Mean Corpuscular Hemoglobin 24.1 pg (28.0-33.3); Mean Corpuscular Volume 80.6 fL (83.0-100.0); Mean Platelet Volume 9.7 fL (9.4-12.4); Monocytes # 0.8 K/mcL (0.0-1.3); Monocytes % 6.9 %; Neutrophils # 8.6 K/mcL (1.6-8.9); Platelet Count 210 K/mcL (140-400); Red Blood Count 3.24 M/mcL (4.19-5.50); Segmented Neutrophils % 77.4 %; White Blood Count 11.1 K/mcL (4.3-11.1)
[2020-10-26 05:37] LABS: BUN/Creatinine Ratio 37 (6-26); Blood Urea Nitrogen 31 mg/dL (8-23); Calcium 8.4 mg/dL (8.6-10.3); Carbon Dioxide 26 mEq/L (23-29); Chloride 106 mEq/L (98-107); Glucose 132 mg/dL (70-105); Osmolality,Calculated 294 (280-300); Potassium 4.2 mEq/L (3.5-5.1); Sodium 138 mEq/L (136-145); eGFR For African Americans > 60 (> 60); eGFR For Non-African Americans > 60 (> 60)
[2020-10-26] MEDS: Multivit/Ca/Min/Fe/FA 1 TAB TABLET PO SCH (07:28)
[2020-10-26] MEDS: Lactobacillus 1 EACH CAP.SPRINK PO SCH ×2 (07:28→20:30)
[2020-10-26] MEDS: Gabapentin 300 MG CAPSULE PO SCH ×3 (07:28→22:46)
[2020-10-26] MEDS: Aspirin Enteric Coated 81 MG Tablet PO SCH (07:28)
[2020-10-26] MEDS: predniSONE 20 MG TABLET PO SCH (07:29)
[2020-10-26] MEDS: Finasteride 5 MG TABLET PO SCH (07:29)
[2020-10-26] MEDS: *HR* HYDROcodone/Acet 5/325 mg TABLET PO PRN ×2 (07:29→15:41)
[2020-10-26] MEDS: Metoprolol XL (24 HR) Succ 25 MG TAB.ER.24H PO SCH (07:30)
[2020-10-26] MEDS: Insulin LISPRO 300 UNITS/3 ML VIAL SUBQ SCH ×7 (07:30→21:03)
[2020-10-26] MEDS: amLODIPine 5 MG TABLET PO SCH (07:30)
[2020-10-26] MEDS: Budesonide/Formoterol 160/4.5 1 PUFF INH IH SCH ×2 (07:49→20:09)
[2020-10-26] MEDS: Insulin DETEMIR 100 UNIT/ML X5UNITS SUBQ SCH ×2 (09:14→21:02)
[2020-10-26] MEDS: QUEtiapine Fumarate 25 MG TABLET PO SCH (22:46)
[2020-10-27] MEDS: Vancomycin 1,500 MG/265 ML IV.SOLN IVPB SCH ×2 (00:12→16:01)
[2020-10-27] MEDS: Ketorolac 15 MG/ML VIAL IVP SCH ×5 (00:13→23:32)
[2020-10-27] MEDS: Ipratropium/Albuterol Neb 3 ML IH SCH ×6 (03:29→23:30)
[2020-10-27] MEDS: Cefepime HCl 2,000 MG in Water for inj. (sterile) 20 ML IVP SCH ×3 (05:12→21:21)
[2020-10-27 05:42] LABS: Hematocrit 25.9 % (37.5-50.1); Hemoglobin 7.5 g/dL (12.9-16.9); Mean Corpuscular Hemoglobin 23.5 pg (28.0-33.3); Mean Corpuscular Volume 81.2 fL (83.0-100.0); Mean Platelet Volume 9.5 fL (9.4-12.4); Platelet Count 183 K/mcL (140-400); Red Blood Count 3.19 M/mcL (4.19-5.50); Red Cell Distribution Width 18.8 % (11.5-14.5); White Blood Count 9.6 K/mcL (4.3-11.1)
[2020-10-27 06:07] LABS: Alanine Aminotransferase 19 Units/L (7-52); Albumin 2.9 g/dL (3.5-5.7); Alkaline Phosphatase 42 Units/L (34-104); Aspartate Amino Transferase 17 Units/L (13-39); BUN/Creatinine Ratio 45 (6-26); Bilirubin,Total 0.4 mg/dL (0.3-1.0); Blood Urea Nitrogen 35 mg/dL (8-23); Calcium 8.1 mg/dL (8.6-10.3); Carbon Dioxide 25 mEq/L (23-29); Chloride 108 mEq/L (98-107); Globulin 2.8 g/dL (2.4-3.5); Glucose 112 mg/dL (70-105); Magnesium 2.3 mg/dL (1.6-2.6); Osmolality,Calculated 297 (280-300); Potassium 4.2 mEq/L (3.5-5.1); Sodium 139 mEq/L (136-145); Total Protein 5.7 g/dL (6.4-8.9); eGFR For African Americans > 60 (> 60); eGFR For Non-African Americans > 60 (> 60)
[2020-10-27] MEDS: Insulin LISPRO 300 UNITS/3 ML VIAL SUBQ SCH ×7 (07:21→20:24)
[2020-10-27] MEDS: Budesonide/Formoterol 160/4.5 1 PUFF INH IH SCH ×2 (07:47→19:49)
[2020-10-27] MEDS: Finasteride 5 MG TABLET PO SCH (08:02)
[2020-10-27] MEDS: predniSONE 20 MG TABLET PO SCH (08:02)
[2020-10-27] MEDS: Metoprolol XL (24 HR) Succ 25 MG TAB.ER.24H PO SCH (08:02)
[2020-10-27] MEDS: amLODIPine 5 MG TABLET PO SCH (08:02)
[2020-10-27] MEDS: Multivit/Ca/Min/Fe/FA 1 TAB TABLET PO SCH (08:02)
[2020-10-27] MEDS: Gabapentin 300 MG CAPSULE PO SCH ×3 (08:02→23:32)
[2020-10-27] MEDS: Lactobacillus 1 EACH CAP.SPRINK PO SCH ×2 (08:02→23:32)
[2020-10-27] MEDS: Aspirin Enteric Coated 81 MG Tablet PO SCH (08:02)
[2020-10-27] MEDS ORDERED: Furosemide 20 MG/2 ML VIAL IVP ONE (09:03)
[2020-10-27] MEDS ORDERED: 0.9 % Sodium Chloride 250 ML IVC SCH (09:15)
[2020-10-27] MEDS: *HR* HYDROcodone/Acet 5/325 mg TABLET PO PRN (09:46)
[2020-10-27] MEDS: Insulin DETEMIR 100 UNIT/ML X5UNITS SUBQ SCH ×2 (10:01→20:24)
[2020-10-27] MEDS: QUEtiapine Fumarate 25 MG TABLET PO SCH (23:31)
[2020-10-28] MEDS: Ipratropium/Albuterol Neb 3 ML IH SCH ×5 (03:54→20:06)
[2020-10-28] MEDS: Cefepime HCl 2,000 MG in Water for inj. (sterile) 20 ML IVP SCH ×3 (04:01→20:49)
[2020-10-28] MEDS: Vancomycin 1,500 MG/265 ML IV.SOLN IVPB SCH ×2 (04:18→16:30)
[2020-10-28 04:47] LABS: Hematocrit 28.6 % (37.5-50.1); Hemoglobin 8.4 g/dL (12.9-16.9); Mean Corpuscular HGB Conc 29.4 g/dL (31.6-35.5); Mean Corpuscular Volume 81.7 fL (83.0-100.0); Mean Platelet Volume 10.1 fL (9.4-12.4); Platelet Count 156 K/mcL (140-400); Red Cell Distribution Width 18.6 % (11.5-14.5); White Blood Count 9.6 K/mcL (4.3-11.1)
[2020-10-28 05:07] LABS: BUN/Creatinine Ratio 44 (6-26); Blood Urea Nitrogen 38 mg/dL (8-23); Calcium 8.1 mg/dL (8.6-10.3); Carbon Dioxide 26 mEq/L (23-29); Chloride 106 mEq/L (98-107); Glucose 128 mg/dL (70-105); Osmolality,Calculated 297 (280-300); Potassium 4.1 mEq/L (3.5-5.1); Sodium 138 mEq/L (136-145); eGFR For African Americans > 60 (> 60); eGFR For Non-African Americans > 60 (> 60)
[2020-10-28] MEDS: Ketorolac 15 MG/ML VIAL IVP SCH ×3 (05:44→18:14)
[2020-10-28] MEDS: Budesonide/Formoterol 160/4.5 1 PUFF INH IH SCH ×2 (07:50→20:06)
[2020-10-28] MEDS: Multivit/Ca/Min/Fe/FA 1 TAB TABLET PO SCH (07:54)
[2020-10-28] MEDS: Lactobacillus 1 EACH CAP.SPRINK PO SCH ×2 (07:54→23:03)
[2020-10-28] MEDS: Metoprolol XL (24 HR) Succ 25 MG TAB.ER.24H PO SCH (07:54)
[2020-10-28] MEDS: Aspirin Enteric Coated 81 MG Tablet PO SCH (07:54)
[2020-10-28] MEDS: amLODIPine 5 MG TABLET PO SCH (07:55)
[2020-10-28] MEDS: Gabapentin 300 MG CAPSULE PO SCH ×3 (07:55→23:03)
[2020-10-28] MEDS: predniSONE 20 MG TABLET PO SCH (07:55)
[2020-10-28] MEDS: Finasteride 5 MG TABLET PO SCH (07:55)
[2020-10-28] MEDS: Insulin DETEMIR 100 UNIT/ML X5UNITS SUBQ SCH ×2 (07:56→20:38)
[2020-10-28] MEDS: Insulin LISPRO 300 UNITS/3 ML VIAL SUBQ SCH ×7 (07:56→20:48)
[2020-10-28] MEDS: *HR* HYDROcodone/Acet 5/325 mg TABLET PO PRN ×2 (10:23→23:03)
[2020-10-28] MEDS ORDERED: Furosemide 40 MG/4 ML VIAL IVP ONE (11:39)
[2020-10-28] MEDS: QUEtiapine Fumarate 25 MG TABLET PO SCH (23:03)
[2020-10-29] MEDS: Ipratropium/Albuterol Neb 3 ML IH SCH ×7 (00:02→23:36)
[2020-10-29] MEDS: Vancomycin 1,500 MG/265 ML IV.SOLN IVPB SCH (03:26)
[2020-10-29] MEDS: Cefepime HCl 2,000 MG in Water for inj. (sterile) 20 ML IVP SCH (03:26)
[2020-10-29 06:32] LABS: Basophils % 0.2 %; Eosinophils # 0.9 K/mcL (0.0-0.6); Eosinophils % 8.1 %; Hematocrit 30.6 % (37.5-50.1); Hemoglobin 9.2 g/dL (12.9-16.9); Lymphocytes # 1.8 K/mcL (0.6-4.6); Lymphocytes % 15.4 %; Mean Corpuscular HGB Conc 30.1 g/dL (31.6-35.5); Mean Corpuscular Hemoglobin 24.3 pg (28.0-33.3); Mean Corpuscular Volume 80.7 fL (83.0-100.0); Mean Platelet Volume 10.1 fL (9.4-12.4); Monocytes # 0.7 K/mcL (0.0-1.3); Monocytes % 6.3 %; Neutrophils # 7.9 K/mcL (1.6-8.9); Platelet Count 166 K/mcL (140-400); Red Blood Count 3.79 M/mcL (4.19-5.50); White Blood Count 11.5 K/mcL (4.3-11.1)
[2020-10-29 06:46] LABS: BUN/Creatinine Ratio 43 (6-26); Blood Urea Nitrogen 38 mg/dL (8-23); Calcium 8.4 mg/dL (8.6-10.3); Carbon Dioxide 27 mEq/L (23-29); Chloride 105 mEq/L (98-107); Glucose 73 mg/dL (70-105); Osmolality,Calculated 294 (280-300); Potassium 4.2 mEq/L (3.5-5.1); Sodium 138 mEq/L (136-145); eGFR For African Americans > 60 (> 60); eGFR For Non-African Americans > 60 (> 60)
[2020-10-29] MEDS: Budesonide/Formoterol 160/4.5 1 PUFF INH IH SCH ×2 (07:18→20:32)
[2020-10-29] MEDS: Aspirin Enteric Coated 81 MG Tablet PO SCH (07:40)
[2020-10-29] MEDS: Multivit/Ca/Min/Fe/FA 1 TAB TABLET PO SCH (07:40)
[2020-10-29] MEDS: predniSONE 20 MG TABLET PO SCH (07:40)
[2020-10-29] MEDS: amLODIPine 5 MG TABLET PO SCH (07:40)
[2020-10-29] MEDS: Gabapentin 300 MG CAPSULE PO SCH ×3 (07:40→20:23)
[2020-10-29] MEDS: Lactobacillus 1 EACH CAP.SPRINK PO SCH ×2 (07:40→20:23)
[2020-10-29] MEDS: Finasteride 5 MG TABLET PO SCH (07:40)
[2020-10-29] MEDS: Metoprolol XL (24 HR) Succ 25 MG TAB.ER.24H PO SCH (07:40)
[2020-10-29] MEDS: Insulin LISPRO 300 UNITS/3 ML VIAL SUBQ SCH ×7 (07:41→20:46)
[2020-10-29] MEDS: Insulin DETEMIR 100 UNIT/ML X5UNITS SUBQ SCH ×2 (07:41→20:32)
[2020-10-29] MEDS ORDERED: Furosemide 40 MG/4 ML VIAL IVP ONE (08:18)
[2020-10-29] MEDS: *HR* HYDROcodone/Acet 5/325 mg TABLET PO PRN ×3 (09:04→23:13)
[2020-10-29] MEDS ORDERED: Furosemide 20 MG/2 ML VIAL IVP ONE (10:24)
[2020-10-29] MEDS: Doxycycline 100 MG in 0.9 % Sodium Chloride Mini Bag 100 ML IVPB SCH ×2 (11:45→22:12)
[2020-10-29] MEDS: Sulfamethoxazole/Trimeth DS 1 EACH TABLET PO SCH (12:04)
[2020-10-29] MEDS: MethylPREDNISolone 40 MG/ML VIAL IVP SCH ×2 (17:10→23:13)
[2020-10-29] MEDS: Vancomycin 1,250 MG/262.5 ML IV.SOLN IVPB SCH (20:23)
[2020-10-29] MEDS: QUEtiapine Fumarate 25 MG TABLET PO SCH (20:23)
[2020-10-30 02:57] LABS: Eosinophils % 0.1 %; Hematocrit 29.5 % (37.5-50.1); Hemoglobin 8.8 g/dL (12.9-16.9); Immature Granulocytes % 1.1 % (0-4); Lymphocytes # 0.6 K/mcL (0.6-4.6); Lymphocytes % 7.6 %; Mean Corpuscular HGB Conc 29.8 g/dL (31.6-35.5); Mean Corpuscular Volume 80.6 fL (83.0-100.0); Mean Platelet Volume 10.8 fL (9.4-12.4); Monocytes # 0.3 K/mcL (0.0-1.3); Monocytes % 3.9 %; Neutrophils # 6.5 K/mcL (1.6-8.9); Platelet Count 151 K/mcL (140-400); Red Blood Count 3.66 M/mcL (4.19-5.50); Red Cell Distribution Width 18.6 % (11.5-14.5); Segmented Neutrophils % 87.3 %; White Blood Count 7.4 K/mcL (4.3-11.1)
[2020-10-30 03:15] LABS: BUN/Creatinine Ratio 37 (6-26); Blood Urea Nitrogen 31 mg/dL (8-23); Carbon Dioxide 25 mEq/L (23-29); Chloride 106 mEq/L (98-107); Glucose 170 mg/dL (70-105); Osmolality,Calculated 297 (280-300); Potassium 4.3 mEq/L (3.5-5.1); Sodium 138 mEq/L (136-145); eGFR For African Americans > 60 (> 60); eGFR For Non-African Americans > 60 (> 60)
[2020-10-30] MEDS: Ipratropium/Albuterol Neb 3 ML IH SCH ×6 (03:32→23:43)
[2020-10-30] MEDS: Lactobacillus 1 EACH CAP.SPRINK PO SCH ×2 (07:31→19:59)
[2020-10-30] MEDS: *HR* HYDROcodone/Acet 5/325 mg TABLET PO PRN (07:31)
[2020-10-30] MEDS: Metoprolol XL (24 HR) Succ 25 MG TAB.ER.24H PO SCH (07:31)
[2020-10-30] MEDS: amLODIPine 5 MG TABLET PO SCH (07:31)
[2020-10-30] MEDS: Budesonide/Formoterol 160/4.5 1 PUFF INH IH SCH ×2 (07:31→19:49)
[2020-10-30] MEDS: Aspirin Enteric Coated 81 MG Tablet PO SCH (07:31)
[2020-10-30] MEDS: Gabapentin 300 MG CAPSULE PO SCH ×3 (07:31→19:59)
[2020-10-30] MEDS: Finasteride 5 MG TABLET PO SCH (07:31)
[2020-10-30] MEDS: Sulfamethoxazole/Trimeth DS 1 EACH TABLET PO SCH (07:31)
[2020-10-30] MEDS: MethylPREDNISolone 40 MG/ML VIAL IVP SCH (07:32)
[2020-10-30] MEDS: Vancomycin 1,250 MG/262.5 ML IV.SOLN IVPB SCH ×2 (07:32→19:59)
[2020-10-30] MEDS: Insulin DETEMIR 100 UNIT/ML X5UNITS SUBQ SCH ×2 (07:33→21:57)
[2020-10-30] MEDS: Multivit/Ca/Min/Fe/FA 1 TAB TABLET PO SCH (07:33)
[2020-10-30] MEDS: Insulin LISPRO 300 UNITS/3 ML VIAL SUBQ SCH ×7 (07:40→21:58)
[2020-10-30] MEDS: Doxycycline 100 MG in 0.9 % Sodium Chloride Mini Bag 100 ML IVPB SCH ×2 (09:36→21:59)
[2020-10-30] MEDS: Acetaminophen 325 MG TABLET PO PRN (15:14)
[2020-10-30] MEDS: predniSONE 20 MG TABLET PO SCH (16:49)
[2020-10-30] MEDS: QUEtiapine Fumarate 25 MG TABLET PO SCH (19:59)
[2020-10-30] MEDS: Melatonin 3 MG TABLET PO PRN (23:07)
[2020-10-31] MEDS: Ipratropium/Albuterol Neb 3 ML IH SCH ×3 (04:03→11:32)
[2020-10-31] MEDS: Budesonide/Formoterol 160/4.5 1 PUFF INH IH SCH (07:41)
[2020-10-31 07:48] LABS: Basophils % 0.1 %; Eosinophils # 0.1 K/mcL (0.0-0.6); Eosinophils % 0.2 %; Hematocrit 35.4 % (37.5-50.1); Immature Granulocytes % 1.3 % (0-4); Lymphocytes # 2.6 K/mcL (0.6-4.6); Lymphocytes % 10.5 %; Mean Corpuscular HGB Conc 29.9 g/dL (31.6-35.5); Mean Corpuscular Hemoglobin 24.1 pg (28.0-33.3); Mean Corpuscular Volume 80.5 fL (83.0-100.0); Mean Platelet Volume 11.2 fL (9.4-12.4); Monocytes # 1.5 K/mcL (0.0-1.3); Monocytes % 6.1 %; Neutrophils # 20.1 K/mcL (1.6-8.9); Platelet Count 292 K/mcL (140-400); Red Cell Distribution Width 19.1 % (11.5-14.5); Segmented Neutrophils % 81.8 %
[2020-10-31 07:55] LABS: BUN/Creatinine Ratio 39 (6-26); Blood Urea Nitrogen 35 mg/dL (8-23); Calcium 9.3 mg/dL (8.6-10.3); Carbon Dioxide 25 mEq/L (23-29); Chloride 100 mEq/L (98-107); Glucose 203 mg/dL (70-105); Osmolality,Calculated 296 (280-300); Potassium 4.6 mEq/L (3.5-5.1); Sodium 136 mEq/L (136-145); Vancomycin,Trough 15 mcg/mL (5-10); eGFR For African Americans > 60 (> 60); eGFR For Non-African Americans > 60 (> 60)
[2020-10-31 08:05] LABS: ANA IgG by ELISA NONE DETECTED (None Detected)
[2020-10-31 08:06] LABS: Hemoglobin 10.6 g/dL (12.9-16.9); White Blood Count 24.6 K/mcL (4.3-11.1)
[2020-10-31] MEDS: Sulfamethoxazole/Trimeth DS 1 EACH TABLET PO SCH (08:21)
[2020-10-31] MEDS: Multivit/Ca/Min/Fe/FA 1 TAB TABLET PO SCH (08:22)
[2020-10-31] MEDS: Aspirin Enteric Coated 81 MG Tablet PO SCH (08:22)
[2020-10-31] MEDS: Finasteride 5 MG TABLET PO SCH (08:22)
[2020-10-31] MEDS: Gabapentin 300 MG CAPSULE PO SCH (08:22)
[2020-10-31] MEDS: predniSONE 20 MG TABLET PO SCH (08:22)
[2020-10-31] MEDS: Lactobacillus 1 EACH CAP.SPRINK PO SCH (08:22)
[2020-10-31] MEDS: amLODIPine 5 MG TABLET PO SCH (08:23)
[2020-10-31] MEDS: Insulin DETEMIR 100 UNIT/ML X5UNITS SUBQ SCH (08:23)
[2020-10-31] MEDS: Insulin LISPRO 300 UNITS/3 ML VIAL SUBQ SCH ×4 (08:24→12:27)
[2020-10-31] MEDS: Metoprolol XL (24 HR) Succ 25 MG TAB.ER.24H PO SCH (08:46)
[2020-10-31] MEDS: Vancomycin 1,250 MG/262.5 ML IV.SOLN IVPB SCH (08:51)
[2020-10-31] MEDS: Doxycycline 100 MG in 0.9 % Sodium Chloride Mini Bag 100 ML IVPB SCH (10:14)
[2020-10-31 11:27] VITALS: BP 127/78; PULSE 86; TEMP 98.1
[2020-10-31 12:07] VITALS: O2SAT 94
[2020-10-31 17:30] LABS: A.galactomannan Ag Index 0.06
[2020-11-01 11:08] LABS: Serine Protease-3 Antibody 3 AU/mL (0-19)
== END 2020-10-31 14:46 | disposition home health service (06) | DRG 853 ==
LOC: 3BNU 15:19 → EMEROOARM 15:19 → SUATTDRO 20:15 → 3BNU 21:30 → SUATTDRO 10-17 19:23 → 2NNU 10-19 11:28
PROVIDERS: ADMIT Internal Medicine; ATTEND Internal Medicine